=== PATIENT | female | born 1985 | race African-American/Black ===

== ENCOUNTER 2019-05-22 22:25 | Emergency (ER) | payer OTHER ==
[2019-05-22] MEDS ORDERED: ACETAMINOPHEN TAB 325 MG TAB PO STA (23:38)
[2019-05-23 00:06] LABS: Basophils % (A) 1 %; Eosinophils # (A) 0.3 k/uL (0-0.7); Eosinophils % (A) 4 %; HCT 37.7 % (34.0-46.0); HGB 11.8 gm/dL (11.4-16.0); Lymphocytes # (A) 3.5 k/uL (1.0-4.8); Lymphocytes % (A) 53 %; MCH 28.2 pg (25.0-35.0); MCHC 31.2 g/dL (31.0-37.0); MCV 90.3 fL (80.0-100.0); Monocytes # (A) 0.3 k/uL (0-1.0); Monocytes % (A) 5 %; Neutrophils # (A) 2.4 k/uL (1.3-7.7); Neutrophils % (A) 36 %; Platelet Count 312 k/uL (150-450); RBC 4.17 m/uL (3.80-5.40); RDW 13.6 % (11.5-15.5); WBC 6.7 k/uL (3.8-10.6)
[2019-05-23 00:13] LABS: INR 0.9 (<1.2)
[2019-05-23 00:17] LABS: ALT 16 U/L (9-52); AST 14 U/L (14-36); African American GFR (CKD) >90 (>60 ml/min/1.73 sqM); Albumin 4.6 g/dL (3.5-5.0); Alkaline Phosphatase 50 U/L (38-126); Anion Gap 8 mmol/L; Appearance,Urine Clear (Clear); Bilirubin,Urine Negative (Negative); Blood Urea Nitrogen 13 mg/dL (7-17); Blood,Urine Negative (Negative); Carbon Dioxide 27 mmol/L (22-30); Chloride 105 mmol/L (98-107); Color,Urine Light Yellow; Glucose 98 mg/dL (74-99); Glucose,Urine (UA) Negative (Negative); Ketones,Urine Negative (Negative); Leukocyte Esterase,Urine Negative (Negative); Lipase 255 U/L (23-300); Nitrite,Urine Negative (Negative); Potassium 4.1 mmol/L (3.5-5.1); Protein,Urine Negative (Negative); Sodium 140 mmol/L (137-145); Specific Gravity,Urine 1.004 (1.001-1.035); Total Bilirubin 0.4 mg/dL (0.2-1.3); Total Protein 7.7 g/dL (6.3-8.2); Urobilinogen,Urine <2.0 mg/dL (<2.0)
--- NOTE | 2019-05-23 00:21 | ED ---
Abdominal Pain HPI - General Chief Complaint: Abdominal Pain Stated Complaint: Abd pain Time Seen by Provider: 05/22/19 22:38 Source: patient Mode of arrival: ambulatory Limitations: no limitations - History of Present Illness Initial Comments: The patient is a 34-year-old female presents to emergency room with complaint of abdominal pain. She reports that her pain started this morning. Is located in the periumbilical region with radiation to her right lower quadrant. She describes it as a cramping sensation. She did not take any medications at home for her symptoms. She reports that she has been constipated. She did have a bowel movement this morning however she had to strain. States this is not typical for her. She denies any rectal bleeding, melanotic stools or hematochezia. She denies any changes in her urination to include dysuria, hematuria or difficulty voiding. She denies any abnormal vaginal bleeding or discharge. She does report a history of a ectopic . Denies the possibility of being . Last menstrual cycle was the first of this month. She has no concern for sexy transmitted infections. She denies any nausea or vomiting. No chest pain or shortness of breath. Denies any back or flank pain. There are no other alleviating, precipitating or modifying factors - Related Data Previous Rx's Medication Instructions Recorded Polyethylene Glycol 3350 [Miralax] 17 gm PO DAILY PRN #527 gm 05/23/19 Allergies Allergy/AdvReac Type Severity Reaction Status Date / Time Iodinated Contrast- Oral and AdvReac Rash/Hives Verified 05/22/19 23:32 IV Dye shellfish derived [Shellfish] AdvReac Rash/Hives Verified 05/22/19 23:32 Review of Systems ROS Statement: Those systems with pertinent positive or pertinent negative responses have been documented in the HPI. ROS Other: All systems not noted in ROS Statement are negative. Past Medical History Past Medical History: Asthma Past Surgical History: Cholecystectomy Additional Past Surgical History / Comment(s): ectopic surgery Past Psychological History: No Psychological Hx Reported Smoking Status: Current every day smoker Past Alcohol Use History: Occasional Past Drug Use History: None Reported General Exam Limitations: no limitations General appearance: alert, in no apparent distress Head exam: Present: atraumatic, normocephalic, normal inspection Eye exam: Present: normal appearance, PERRL, EOMI. Absent: scleral icterus, conjunctival injection, periorbital swelling ENT exam: Present: normal exam, mucous membranes moist Neck exam: Present: normal inspection. Absent: tenderness, meningismus, lymphadenopathy Respiratory exam: Present: normal lung sounds bilaterally. Absent: respiratory distress, wheezes, rales, rhonchi, stridor Cardiovascular Exam: Present: regular rate, normal rhythm, normal heart sounds. Absent: systolic murmur, diastolic murmur, rubs, gallop, clicks GI/Abdominal exam: Present: soft, normal bowel sounds. Absent: distended, tenderness, guarding, rebound, rigid Extremities exam: Present: normal inspection, full ROM, normal capillary refill. Absent: tenderness, pedal edema, joint swelling, calf tenderness Back exam: Present: normal inspection Neurological exam: Present: alert, oriented X3, CN II-XII intact Psychiatric exam: Present: normal affect, normal mood Skin exam: Present: warm, dry, intact, normal color. Absent: rash Course Vital Signs 05/22/19 05/23/19 05/23/19 22:27 00:01 01:40 Temperature 97.9 F 97.8 F Pulse Rate 90 74 75 Respiratory 16 18 16 Rate Blood Pressure 126/85 104/75 132/84 O2 Sat by Pulse 98 100 100 Oximetry Medical Decision Making - Medical Decision Making The patient is placed into room 16. She is hooked up to continuous pulse ox and cardiac monitoring. I discussed diagnosis, differential and treatment options. Laboratory studies were conducted and the patient did provide a urine sample. She was also sent for a CT of her abdomen and pelvis without contrast as the patient does have an ALLERGY to iodinated contrast. Upon return, the results are discussed with the patient. Laboratory studies are unremarkable and urina lysis demonstrates no signs of infection. CT of her abdomen and pelvis demonstrates a umbilical hernia however there are no signs of appendicitis. The patient had been provided with Tylenol throughout her stay. She remained comfortable. Serial abdominal exams were performed demonstrated no peritoneal signs. The patient was seen conversing on her cell phone. The patient was discharged. Upon entering the patient room to provide discharge instructions addictive noted the patient had eloped. The nursing staff was able to call him discuss deportment returning to the emergency department in order to remove the patient's ID. The patient states that she had left to go orange picker her family fro m a restaurant. She reported that she would return. We are currently arriving patient's return. - Lab Data Result diagrams: 05/22/19 23:50 05/22/19 23:50 Lab Results 05/22/19 05/22/19 05/22/19 Range/Units 23:50 23:50 23:50 WBC 6.7 (3.8-10.6) k/uL RBC 4.17 (3.80-5.40) m/uL Hgb 11.8 (11.4-16.0) gm/dL Hct 37.7 (34.0-46.0) % MCV 90.3 (80.0-100.0) fL MCH 28.2 (25.0-35.0) pg MCHC 31.2 (31.0-37.0) g/dL RDW 13.6 (11.5-15.5) % Plt Count 312 (150-450) k/uL Neutrophils % 36 % Lymphocytes % 53 % Monocytes % 5 % Eosinophils % 4 % Basophils % 1 % Neutrophils # 2.4 (1.3-7.7) k/uL Lymphocytes # 3.5 (1.0-4.8) k/uL Monocytes # 0.3 (0-1.0) k/uL Eosinophils # 0.3 (0-0.7) k/uL Basophils # 0.0 (0-0.2) k/uL PT (9.0-12.0) sec INR (<1.2) Sodium 140 (137-145) mmol/L Potassium 4.1 (3.5-5.1) mmol/L Chloride 105 (98-107) mmol/L Carbon Dioxide 27 (22-30) mmol/L Anion Gap 8 mmol/L BUN 13 (7-17) mg/dL Creatinine 0.74 (0.52-1.04) mg/dL Est GFR (CKD-EPI)AfAm >90 (>60 ml/min/1.73 sqM) Est GFR (CKD-EPI)NonAf >90 (>60 ml/min/1.73 sqM) Glucose 98 (74-99) mg/dL Plasma Lactic Acid Nilo (0.7-2.0) mmol/L Calcium 10.0 (8.4-10.2) mg/dL Total Bilirubin 0.4 (0.2-1.3) mg/dL AST 14 (14-36) U/L ALT 16 (9-52) U/L Alkaline Phosphatase 50 (38-126) U/L Total Protein 7.7 (6.3-8.2) g/dL Albumin 4.6 (3.5-5.0) g/dL Lipase 255 (23-300) U/L Urine Color Urine Appearance (Clear) Urine pH (5.0-8.0) Ur Specific [place] (1.001-1.035) Urine Protein (Negative) Urine Glucose (UA) (Negative) Urine Ketones (Negative) Urine Blood (Negative) Urine Nitrite (Negative) Urine Bilirubin (Negative) Urine Urobilinogen (<2.0) mg/dL Ur Leukocyte Esterase (Negative) Urine HCG, Qual Not Detected (Not Detectd) 05/22/19 05/22/19 05/22/19 Range/Units 23:50 23:50 23:50 WBC (3.8-10.6) k/uL RBC (3.80-5.40) m/uL Hgb (11.4-16.0) gm/dL Hct (34.0-46.0) % MCV (80.0-100.0) fL MCH (25.0-35.0) pg MCHC (31.0-37.0) g/dL RDW (11.5-15.5) % Plt Count (150-450) k/uL Neutrophils % % Lymphocytes % % Monocytes % % Eosinophils % % Basophils % % Neutrophils # (1.3-7.7) k/uL Lymphocytes # (1.0-4.8) k/uL Monocytes # (0-1.0) k/uL Eosinophils # (0-0.7) k/uL Basophils # (0-0.2) k/uL PT 10.0 (9.0-12.0) sec INR 0.9 (<1.2) Sodium (137-145) mmol/L Potassium (3.5-5.1) mmol/L Chloride (98-107) mmol/L Carbon Dioxide (22-30) mmol/L Anion Gap mmol/L BUN (7-17) mg/dL Creatinine (0.52-1.04) mg/dL Est GFR (CKD-EPI)AfAm (>60 ml/min/1.73 sqM) Est GFR (CKD-EPI)NonAf (>60 ml/min/1.73 sqM) Glucose (74-99) mg/dL Plasma Lactic Acid Nilo 0.8 (0.7-2.0) mmol/L Calcium (8.4-10.2) mg/dL Total Bilirubin (0.2-1.3) mg/dL AST (14-36) U/L ALT (9-52) U/L Alkaline Phosphatase (38-126) U/L Total Protein (6.3-8.2) g/dL Albumin (3.5-5.0) g/dL Lipase (23-300) U/L Urine Color Light Yellow Urine Appearance Clear (Clear) Urine pH 6.0 (5.0-8.0) Ur Specific [place] 1.004 (1.001-1.035) Urine Protein Negative (Negative) Urine Glucose (UA) Negative (Negative) Urine Ketones Negative (Negative) Urine Blood Negative (Negative) Urine Nitrite Negative (Negative) Urine Bilirubin Negative (Negative) Urine Urobilinogen <2.0 (<2.0) mg/dL Ur Leukocyte Esterase Negative (Negative) Urine HCG, Qual (Not Detectd) Disposition Clinical Impression: Abdominal pain, Constipation Disposition: HOME SELF-CARE Condition: Stable Instructions (If sedation given, give patient instructions): Abdominal Pain (ED) Additional Instructions: Please follow-up with your primary care doctor in 1-2 days. Return to emergency room for any new or worsening symptoms Prescriptions: Polyethylene Glycol 3350 [Miralax] 17 gm PO DAILY PRN #527 gm PRN Reason: Constipation Is patient prescribed a controlled substance at d/c from ED?: No Referrals: None,Stated [Primary Care Provider] - 1-2 days Time of Disposition: 01:15
--- NOTE | 2019-05-23 00:48 | CT ---
EXAM: CT Abdomen and Pelvis Without Intravenous Contrast CLINICAL HISTORY: abdominal pain TECHNIQUE: Axial computed tomography images of the abdomen and pelvis without intravenous contrast. CTDI is 18.8 mGy and DLP is 783.4 mGy-cm. This CT exam was performed using one or more of the following dose reduction techniques: automated exposure control, adjustment of the mA and/or kV according to patient size, and/or use of iterative reconstruction technique. COMPARISON: No relevant prior studies available. FINDINGS: Lung bases: Unremarkable. No mass. No consolidation. ABDOMEN: Liver: Unremarkable. Gallbladder and bile ducts: Surgically absent. No ductal dilation. Pancreas: Unremarkable. No ductal dilation. Spleen: Unremarkable. No splenomegaly. Adrenals: Unremarkable. No mass. Kidneys and ureters: Unremarkable. No obstructing stones. No hydronephrosis. Stomach and bowel small periumbilical hernia containing fat.. No inflammatory changes along the colon No obstruction. No mucosal thickening. PELVIS: Appendix: The appendix is unremarkable. Bladder: Unremarkable. No stones. Reproductive: Unremarkable as visualized. ABDOMEN and PELVIS: Intraperitoneal space: Unremarkable. No free air. No significant fluid collection. Bones/joints: No acute fracture. No dislocation. Soft tissues: Unremarkable. Vasculature: Unremarkable. No abdominal aortic aneurysm. Lymph nodes: Unremarkable. No enlarged lymph nodes. IMPRESSION: No acute abnormality demonstrated the abdomen or pelvis
[2019-05-23 01:43] VITALS: BP 132/84; PULSE 75; RESP 16; TEMP 97.8
== END 2019-05-23 01:40 | disposition home or self-care (01) ==
LOC: EC 22:25
DX: K59.00 Constipation, unspecified (principal); K42.9 Umbilical hernia without obstruction or gangrene; F17.200 Nicotine dependence, unspecified, uncomplicated; Z91.013 Allergy to seafood; Z91.041 Radiographic dye allergy status; Z90.49 Acquired absence of other specified parts of digestive tract
CPT/HCPCS: 36415; 74176; 80053; 81003; 81025; 83605; 83690; 85025; 85610; 99284

== ENCOUNTER 2024-10-11 13:57 | Emergency (ER) | payer OTHER ==
--- NOTE | 2024-10-11 14:56 | ED ---
General Adult HPI - General Chief complaint: Dizziness Stated complaint: dizzy/bilateral ear ache/preg test Time Seen by Provider: 10/11/24 14:11 Source: patient, RN notes reviewed Mode of arrival: ambulatory Limitations: no limitations - History of Present Illness Initial comments: 39-year-old presented to the emergency department for evaluation of multiple complaints. She admits to lightheadedness. Patient reports that she is unsure when this started. She notes that it is on and off. Denies any known triggers. Patient also requesting serum hCG test. She states that she has some lower abdominal cramping and her period is late. She is not having any abdominal pain at this time. Denies recent fever, chills. She denies nausea, vomiting, v aginal bleeding, vaginal discharge. She denies dysuria, frequency. - Related Data Home Medications Medication Instructions Recorded Confirmed Albuterol Sulfate [Albuterol 2 puff PO RT-Q4H PRN 10/11/24 10/11/24 Sulfate Hfa] Cetirizine HCl [Zyrtec] 10 mg PO DAILY 10/11/24 10/11/24 Cromolyn Sodium [NasalCrom] 1 spray NASAL QID PRN 10/11/24 10/11/24 Allergies Allergy/AdvReac Type Severity Reaction Status Date / Time Iodinated Contrast Media AdvReac Rash/Hives Verified 10/11/24 15:44 [Iodinated Contrast- Oral and IV Dye] shellfish derived [Shellfish] AdvReac Rash/Hives Verified 10/11/24 15:44 Review of Systems ROS Statement: Those systems with pertinent positive or pertinent negative responses have been documented in the HPI. ROS Other: All systems not noted in ROS Statement are negative. Past Medical History Past Medical History: Asthma History of Any Multi-Drug Resistant Organisms: None Reported Past Surgical History: Cholecystectomy Additional Past Surgical History / Comment(s): ectopic surgery Past Psychological History: No Psychological Hx Reported Smoking Status: Current every day smoker Past Alcohol Use History: Occasional Past Drug Use History: None Reported General Exam Limitations: no limitations General appearance: alert, in no apparent distress Head exam: Present: atraumatic, normocephalic, normal inspection Eye exam: Present: normal appearance, PERRL, EOMI. Absent: scleral icterus, conjunctival injection, periorbital swelling ENT exam: Present: normal oropharynx Respiratory exam: Present: normal lung sounds bilaterally. Absent: respiratory distress, wheezes, rales, rhonchi, stridor Cardiovascular Exam: Present: regular rate, normal rhythm, normal heart sounds. Absent: systolic murmur, diastolic murmur, rubs, gallop, clicks GI/Abdominal exam: Present: soft, normal bowel sounds. Absent: distended, tenderness, guarding, rebound, rigid Extremities exam: Present: normal inspection, full ROM, normal capillary refill. Absent: tenderness, pedal edema, joint swelling, calf tenderness Neurological exam: Present: alert, oriented X3 Psychiatric exam: Present: normal affect, normal mood Skin exam: Present: warm, dry, intact, normal color. Absent: rash Course Vital Signs 10/11/24 10/11/24 10/11/24 13:58 17:02 17:50 Temperature 97.9 F Pulse Rate 82 84 Respiratory 20 18 18 Rate Blood Pressure 94/60 113/81 Blood Pressure 125/80 [Left Arm Sitting] Blood Pressure 116/71 [Left Arm Standing] Blood Pressure 122/68 [Left Arm Supine] O2 Sat by Pulse 100 97 99 Oximetry 10/11/24 18:11 Temperature 98.4 F Pulse Rate 84 Respiratory 18 Rate Blood Pressure 124/76 Blood Pressure [Left Arm Sitting] Blood Pressure [Left Arm Standing] Blood Pressure [Left Arm Supine] O2 Sat by Pulse 98 Oximetry Medical Decision Making - Medical Decision Making Was pt. sent in by a medical professional or institution (, PA, SHAPING MACHINE TENDER, urgent care, hospital, or jail...) When possible be specific @ -No Did you speak to anyone other than the patient for history (EMS, parent, family, police, friend...)? What history was obtained from this source @ -No Did you review nursing and triage notes (agree or disagree)? Why? @ -I reviewed and agree with nursing and triage notes Were old charts reviewed (outside hosp., previous admission, EMS record, old EKG, old radiological studies, urgent care reports/EKG's, jail records)? Report findings @ -No old charts were reviewed Differential Diagnosis (chest pain, altered mental status, abdominal pain women, abdominal pain men, vaginal bleeding, weakness, fever, dyspnea, syncope, headache, dizziness, GI bleed, back pain, seizure, CVA, palpatations, mental health, musculoskeletal)? @ -Differential Dizziness: Benign paroxysmal positional Vertigo, Meniere's disease, otitis media, acoustic neuroma, vertebrobasilar insufficiency, cerebellar stroke, encephalitis, hypovolemic, arrhythmia, coronary artery syndrome, anemia, this is not meant to be an all-inclusive list EKG interpreted by me (3pts min.). @ -EKG at 1419 shows sinus rhythm rate 73, WA 144, QRS 101, QTQTc [id number] X-rays interpreted by me (1pt min.). @ -None done CT interpreted by me (1pt min.). @ -None done U/S interpreted by me (1pt. min.). @ -None done What testing was considered but not performed or refused? (CT, X-rays, U/S, labs)? Why? @ -None What meds were considered but not given or refused? Why? @ -None Did you discuss the management of the patient with other professionals (professionals i.e. , PA, SHAPING MACHINE TENDER, lab, RT, psych nurse, clinical social worker, cement based materials pump tender, teacher, bsa officer, human services case manager)? Give summary @ -No Was smoking cessation discussed for >3mins.? @ -No Was critical care preformed (if so, how long)? @ -No Were there social determinants of health that impacted care today? How? (Homelessness, low income, unemployed, alcoholism, drug addiction, transportation, low edu. Level, literacy, decrease access to med. care, intermediate, rehab)? @ -No Was there de-escalation of care discussed even if they declined (Discuss DNR or withdrawal of care, Hospice)? DNR status @ -No What co-morbidities impacted this encounter? (DM, HTN, Smoking, COPD, CAD, Cancer, CVA, ARF, Chemo, Hep., AIDS, mental health diagnosis, sleep apnea, morbid obesity)? @ -None Was patient admitted / discharged? Hospital course, mention meds given and route, prescriptions, significant lab abnormalities, going to OR and other pertinent info. @ -Discharge. Patient presented to the emergency department for evaluation of multiple complaints. Patient reporting lightheadedness, requesting serum hCG test, lower abdominal cramping. She is not having any abdominal pain at this time. She is nontender to palpation. She was provided a liter of normal saline in the ED which improved her lightheadedness. Laboratory studies obtained revealing no significant leukocytosis, hemoglobin stable. Negative serum hCG. UA shows no evidence of infectious process, negative for COVID, influenza, RSV. Patient was advised on findings, symptoms improved. Patient will be discharged home. Patient stable at time of discharge. Case discussed with Dr. Garcia Undiagnosed new problem with uncertain prognosis? @ -No Drug Therapy requiring intensive monitoring for toxicity (Heparin, Nitro, Insulin, Cardizem)? @ -No Were any procedures done? @ -No Diagnosis/symptom? @ -Lightheadedness Acute, or Chronic, or Acute on Chronic? @ -Acute Uncomplicated (without systemic symptoms) or Complicated (systemic symptoms)? @ -Uncomplicated Side effects of treatment? @ -No Exacerbation, Progression, or Severe Exacerbation? @ -No Poses a threat to life or bodily function? How? (Chest pain, [place], [place], pneumonia, PE, COPD, DKA, ARF, appy, cholecystitis, CVA, Diverticulitis, Homicidal, Suicidal, threat to staff... and all critical care pts) @ -No - Lab Data Result diagrams: 10/11/24 14:38 10/11/24 14:38 Lab Results 10/11/24 10/11/24 10/11/24 Range/Units 14:38 14:38 14:38 WBC 6.4 (3.8-10.6) k/uL RBC 4.69 (3.80-5.40) m/uL Hgb 14.4 (11.4-16.0) gm/dL Hct 43.8 (34.0-46.0) % MCV 93.5 (80.0-100.0) fL MCH 30.7 (25.0-35.0) pg MCHC 32.9 (31.0-37.0) g/dL RDW 13.1 (11.5-15.5) % Plt Count 176 (150-450) k/uL MPV 8.7 Neutrophils % 48 % Lymphocytes % 39 % Monocytes % 6 % Eosinophils % 5 % Basophils % 1 % Neutrophils # 3.1 (1.3-7.7) k/uL Lymphocytes # 2.5 (1.0-4.8) k/uL Monocytes # 0.4 (0-1.0) k/uL Eosinophils # 0.4 (0-0.7) k/uL Basophils # 0.0 (0-0.2) k/uL Sodium 138 (137-145) mmol/L Potassium 4.6 (3.5-5.1) mmol/L Chloride 109 H (98-107) mmol/L Carbon Dioxide 20 L (22-30) mmol/L Anion Gap 9 mmol/L BUN 7 (7-17) mg/dL Creatinine 0.65 (0.52-1.04) mg/dL Est GFR (CKD-EPI)AfAm >90 (>60 ml/min/1.73 sqM) Est GFR (CKD-EPI)NonAf >90 (>60 ml/min/1.73 sqM) Glucose 80 (74-99) mg/dL Calcium 9.4 (8.4-10.2) mg/dL Total Bilirubin 1.1 (0.2-1.3) mg/dL AST 33 (14-36) U/L ALT 38 H (4-34) U/L Alkaline Phosphatase 70 (38-126) U/L Total Protein 8.7 H (6.3-8.2) g/dL Albumin 4.8 (3.5-5.0) g/dL HCG, Quant <2.4 mIU/mL Urine Color Colorless Urine Appearance Clear (Clear) Urine pH 7.0 (5.0-8.0) Ur Specific [place] 1.008 (1.001-1.035) Urine Protein Negative (Negative) Urine Glucose (UA) Negative (Negative) Urine Ketones Negative (Negative) Urine Blood Negative (Negative) Urine Nitrite Negative (Negative) Urine Bilirubin Negative (Negative) Urine Urobilinogen <2.0 (<2.0) mg/dL Ur Leukocyte Esterase Negative (Negative) Influenza Type A (PCR) (Not Detectd) Influenza Type B (PCR) (Not Detectd) RSV (PCR) (Not Detectd) SARS-CoV-2 (PCR) (Not Detectd) 10/11/24 Range/Units 14:38 WBC (3.8-10.6) k/uL RBC (3.80-5.40) m/uL Hgb (11.4-16.0) gm/dL Hct (34.0-46.0) % MCV (80.0-100.0) fL MCH (25.0-35.0) pg MCHC (31.0-37.0) g/dL RDW (11.5-15.5) % Plt Count (150-450) k/uL MPV Neutrophils % % Lymphocytes % % Monocytes % % Eosinophils % % Basophils % % Neutrophils # (1.3-7.7) k/uL Lymphocytes # (1.0-4.8) k/uL Monocytes # (0-1.0) k/uL Eosinophils # (0-0.7) k/uL Basophils # (0-0.2) k/uL Sodium (137-145) mmol/L Potassium (3.5-5.1) mmol/L Chloride (98-107) mmol/L Carbon Dioxide (22-30) mmol/L Anion Gap mmol/L BUN (7-17) mg/dL Creatinine (0.52-1.04) mg/dL Est GFR (CKD-EPI)AfAm (>60 ml/min/1.73 sqM) Est GFR (CKD-EPI)NonAf (>60 ml/min/1.73 sqM) Glucose (74-99) mg/dL Calcium (8.4-10.2) mg/dL Total Bilirubin (0.2-1.3) mg/dL AST (14-36) U/L ALT (4-34) U/L Alkaline Phosphatase (38-126) U/L Total Protein (6.3-8.2) g/dL Albumin (3.5-5.0) g/dL HCG, Quant mIU/mL Urine Color Urine Appearance (Clear) Urine pH (5.0-8.0) Ur Specific [place] (1.001-1.035) Urine Protein (Negative) Urine Glucose (UA) (Negative) Urine Ketones (Negative) Urine Blood (Negative) Urine Nitrite (Negative) Urine Bilirubin (Negative) Urine Urobilinogen (<2.0) mg/dL Ur Leukocyte Esterase (Negative) Influenza Type A (PCR) Not Detected (Not Detectd) Influenza Type B (PCR) Not Detected (Not Detectd) RSV (PCR) Not Detected (Not Detectd) SARS-CoV-2 (PCR) Not Detected (Not Detectd) Disposition Clinical Impression: Lightheadedness Disposition: HOME SELF-CARE Condition: Stable Instructions (If sedation given, give patient instructions): Dizziness (ED) Additional Instructions: Please follow up with a local PCP. Return to the emergency department for new or worsening symptoms. Is patient prescribed a controlled substance at d/c from ED?: No Referrals: None,Stated [Primary Care Provider] - 1-2 days Forms: Area PCPs
[2024-10-11] MEDS: SODIUM CHLORIDE 0.9% 1,000 ML IV STA (15:05)
[2024-10-11 15:24] LABS: ALT 38 U/L (4-34); AST 33 U/L (14-36); African American GFR (CKD) >90 (>60 ml/min/1.73 sqM); Albumin 4.8 g/dL (3.5-5.0); Alkaline Phosphatase 70 U/L (38-126); Anion Gap 9 mmol/L; Blood Urea Nitrogen 7 mg/dL (7-17); Calcium 9.4 mg/dL (8.4-10.2); Carbon Dioxide 20 mmol/L (22-30); Chloride 109 mmol/L (98-107); Glucose 80 mg/dL (74-99); Non-African American GFR(CKD) >90 (>60 ml/min/1.73 sqM); Potassium 4.6 mmol/L (3.5-5.1); Sodium 138 mmol/L (137-145); Total Bilirubin 1.1 mg/dL (0.2-1.3); Total Protein 8.7 g/dL (6.3-8.2)
[2024-10-11 15:41] LABS: HCG,Quantitative Serum <2.4 mIU/mL
[2024-10-11 15:44] LABS: Basophils % (A) 1 %; Eosinophils # (A) 0.4 k/uL (0-0.7); Eosinophils % (A) 5 %; HCT 43.8 % (34.0-46.0); HGB 14.4 gm/dL (11.4-16.0); Lymphocytes # (A) 2.5 k/uL (1.0-4.8); Lymphocytes % (A) 39 %; MCH 30.7 pg (25.0-35.0); MCHC 32.9 g/dL (31.0-37.0); MCV 93.5 fL (80.0-100.0); Mean Platelet Volume 8.7; Monocytes # (A) 0.4 k/uL (0-1.0); Monocytes % (A) 6 %; Neutrophils # (A) 3.1 k/uL (1.3-7.7); Neutrophils % (A) 48 %; Platelet Count 176 k/uL (150-450); RBC 4.69 m/uL (3.80-5.40); RDW 13.1 % (11.5-15.5); WBC 6.4 k/uL (3.8-10.6)
[2024-10-11 16:49] LABS: Appearance,Urine Clear (Clear); Bilirubin,Urine Negative (Negative); Blood,Urine Negative (Negative); Color,Urine Colorless; Glucose,Urine (UA) Negative (Negative); Ketones,Urine Negative (Negative); Leukocyte Esterase,Urine Negative (Negative); Nitrite,Urine Negative (Negative); Protein,Urine Negative (Negative); Specific Gravity,Urine 1.008 (1.001-1.035); Urobilinogen,Urine <2.0 mg/dL (<2.0)
[2024-10-11 17:34] VITALS: PULSE 84; RESP 18
[2024-10-11 18:13] VITALS: BP 124/76; TEMP 98.4
== END 2024-10-11 18:13 | disposition home or self-care (01) ==
LOC: EC 13:57
DX: R42 Dizziness and giddiness (principal); F17.200 Nicotine dependence, unspecified, uncomplicated; Z91.041 Radiographic dye allergy status; Z91.013 Allergy to seafood; Z11.52 Encounter for screening for COVID-19
CPT/HCPCS: 36415; 80053; 81003; 84702; 85025; 87636; 93005; 96360; 99284

== ENCOUNTER 2024-11-14 03:26 | Emergency (ER) | payer OTHER ==
[2024-11-14 03:42] VITALS: RESP 16; TEMP 98.5
--- NOTE | 2024-11-14 03:50 | ED ---
General Adult HPI - General Chief complaint: Vaginal Bleeding Stated complaint: Possible miscarriage Time Seen by Provider: 11/14/24 03:33 Source: patient, EMS Mode of arrival: EMS - History of Present Illness Initial comments: Dictation was produced using GuidePal dictation software. please excuse any grammatical, word or spelling errors. Chief Complaint: 39-year-old female vaginal bleeding pelvic pain History of Present Illness: Patient is a 39-year-old female presents emergency department for vaginal bleeding and pelvic pain. Patient not sure if she is . States that she had a positive test at home. Last few days she has had some vaginal bleeding with passage of blood clots. Does complain of some cramping. Patient complains of some also some nausea. Denies any diarrhea.. The ROS documented in this emergency department record has been reviewed and confirmed by me. Those systems with pertinent positive or negative responses have been documented in the HPI. All other systems are other negative and/or noncontributory. - Related Data Home Medications Medication Instructions Recorded Confirmed Albuterol Sulfate [Albuterol 2 puff PO RT-Q4H PRN 10/11/24 10/11/24 Sulfate Hfa] Cetirizine HCl [Zyrtec] 10 mg PO DAILY 10/11/24 10/11/24 Cromolyn Sodium [NasalCrom] 1 spray NASAL QID PRN 10/11/24 10/11/24 Allergies Allergy/AdvReac Type Severity Reaction Status Date / Time peanut Allergy Anaphylaxis Verified 11/14/24 03:42 Iodinated Contrast Media AdvReac Rash/Hives Verified 11/14/24 03:42 [Iodinated Contrast- Oral and IV Dye] shellfish derived [Shellfish] AdvReac Rash/Hives Verified 11/14/24 03:42 Review of Systems ROS Statement: Those systems with pertinent positive or pertinent negative responses have been documented in the HPI. ROS Other: All systems not noted in ROS Statement are negative. Past Medical History Past Medical History: Asthma History of Any Multi-Drug Resistant Organisms: None Reported Past Surgical History: Cholecystectomy Additional Past Surgical History / Comment(s): ectopic surgery Past Psychological History: No Psychological Hx Reported Smoking Status: Current every day smoker Past Alcohol Use History: Occasional Past Drug Use History: None Reported General Exam - General Exam Comments Initial Comments: PHYSICAL EXAM: General Impression: Alert and oriented x3, not in acute distress HEENT: Normocephalic atraumatic, extra-ocular movements intact, pupils equal and reactive to light bilaterally, mucous membranes moist. Cardiovascular: Heart regular rate and rhythm Chest: Able to complete full sentences, no retractions, no tachypnea Abdomen: abdomen soft, mild tenderness to the lower abdomen, non-distended, no organomegaly Musculoskeletal: Pulses present and equal in all extremities, no peripheral edema Motor: no focal deficits noted Neurological: CN II-XII grossly intact, no focal motor or sensory deficits noted Skin: Intact with no visualized rashes Psych: Normal affect and mood Course Vital Signs 11/14/24 03:38 Temperature 98.5 F Pulse Rate 98 Respiratory 16 Rate Blood Pressure 145/92 O2 Sat by Pulse 99 Oximetry Medical Decision Making - Medical Decision Making Was pt. sent in by a medical professional or institution (, PA, [employer]CRA[employer]SEMBLER, urgent care, hospital, or retirement...) When possible be specific @ -No Did you speak to anyone other than the patient for history (EMS, parent, family, police, friend...)? What history was obtained from this source @ -No Did you review nursing and triage notes (agree or disagree)? Why? @ -I reviewed and agree with nursing and triage notes Were old charts reviewed (outside hosp., previous admission, EMS record, old EKG, old radiological studies, urgent care reports/EKG's, retirement records)? Report findings @ -No old charts were reviewed Differential Diagnosis (chest pain, altered mental status, abdominal pain women, abdominal pain men, vaginal bleeding, musculoskeletal, weakness, fever, dyspnea, syncope, headache, dizziness, GI bleed, back pain, seizure, CVA, palpatations, mental health)? @ -Differential Abdominal Pain Women: Appendicitis, Cholecystitis, diverticulosis, ischemic bowel, pancreatitis, hepatitis, UTI, gastroenteritis, AAA, incarcerated hernia, bowel obstruction, constipation, inflammatory bowel, hepatitis, peptic ulcer disease, splenic infarction, perforated viscus, vulvitis, ovarian torsion, PID, kidney stone, placenta abruption, this is not meant to be an all-inclusive list EKG interpreted by me (3pts min.). @ -None done X-rays interpreted by me (1pt min.). @ -None done CT interpreted by me (1pt min.). @ -None done U/S interpreted by me (1pt. min.). @ -None done What testing was considered but not performed or refused? (CT, X-rays, U/S, labs)? Why? @ -None What meds were considered but not given or refused? Why? @ -None Was smoking cessation discussed for >3mins.? @ -No Were there social determinants of health that impacted care today? How? (Homelessness, low income, unemployed, alcoholism, drug addiction, transportation, low edu. Level, literacy, decrease access to med. care, prison, re hab)? @ -No Was there de-escalation of care discussed even if they declined (Discuss DNR or withdrawal of care, Hospice)? DNR status @ -No What co-morbidities impacted this encounter? (DM, HTN, Smoking, COPD, CAD, Cancer, CVA, ARF, Chemo, Hep., AIDS, mental health diagnosis, sleep apnea, morbid obesity)? @ -None Was patient admitted / discharged? Hospital course, mention meds given and route, prescriptions, significant lab abnormalities, going to OR and other pertinent info. @ -39-year-old female with no significant past medical history presents emergency department with abdominal pain. Vital signs stable. Patient's abdomen is nonsurgical. She does have some palpatory tenderness. Labs otherwise unremarkable. Urine hCG negative. Patient observed emergency department for approximately 2 hours and 36 minutes. Reevaluated bedside at 6:04 AM found to be stable medical condition. Patient well-appearing stable for discharge. Advise close follow-up with primary care doctor. Patient's vaginal bleeding is likely secondary to menses. Did you discuss the management of the patient with other professionals (professionals i.e. , PA, [employer]S ASSEMBLER, lab, RT, psych nurse, social media coordinator, stock fitter, teacher, quality officer, disease case manager rn)? Give summary @ -No Was critical care preformed (if so, how long)? @ -No Undiagnosed new problem with uncertain prognosis? @ -No Drug Therapy requiring intensive monitoring for toxicity (Heparin, Nitro, Insulin, Cardizem)? @ -No Were any procedures done? @ -No Diagnosis/symptom? Acute, or Chronic, or Acute on Chronic? Uncomplicated (without systemic symptoms) or Complicated (systemic symptoms)? @ -Abdominal pain Side effects of treatment? @ -No Exacerbation, Progression, or Severe Exacerbation? @ -No Poses a threat to life or bodily function? How? (Chest pain, [place], [place], pneumonia, PE, COPD, DKA, ARF, appy, cholecystitis, CVA, Diverticulitis, Homicidal, Suicidal, threat to staff... and all critical care pts) @ -No - Lab Data Result diagrams: 11/14/24 04:05 11/14/24 04:05 Lab Results 11/14/24 11/14/24 11/14/24 Range/Units 04:05 04:05 04:54 WBC 8.4 (3.8-10.6) k/uL RBC 4.00 (3.80-5.40) m/uL Hgb 12.4 (11.4-16.0) gm/dL Hct 37.2 (34.0-46.0) % MCV 93.0 (80.0-100.0) fL MCH 30.9 (25.0-35.0) pg MCHC 33.2 (31.0-37.0) g/dL RDW 12.5 (11.5-15.5) % Plt Count 280 (150-450) k/uL MPV 6.9 Neutrophils % 53 % Lymphocytes % 36 % Monocytes % 5 % Eosinophils % 3 % Basophils % 1 % Neutrophils # 4.5 (1.3-7.7) k/uL Lymphocytes # 3.0 (1.0-4.8) k/uL Monocytes # 0.5 (0-1.0) k/uL Eosinophils # 0.3 (0-0.7) k/uL Basophils # 0.1 (0-0.2) k/uL Sodium 139 (137-145) mmol/L Potassium 3.9 (3.5-5.1) mmol/L Chloride 105 (98-107) mmol/L Carbon Dioxide 26 (22-30) mmol/L Anion Gap 8 mmol/L BUN 11 (7-17) mg/dL Creatinine 0.72 (0.52-1.04) mg/dL Est GFR (CKD-EPI)AfAm >90 (>60 ml/min/1.73 sqM) Est GFR (CKD-EPI)NonAf >90 (>60 ml/min/1.73 sqM) Glucose 103 H (74-99) mg/dL Calcium 9.1 (8.4-10.2) mg/dL Total Bilirubin 0.6 (0.2-1.3) mg/dL AST 21 (14-36) U/L ALT 23 (4-34) U/L Alkaline Phosphatase 55 (38-126) U/L Total Protein 7.4 (6.3-8.2) g/dL Albumin 4.4 (3.5-5.0) g/dL Lipase 260 (23-300) U/L Urine HCG, Qual Not Detected (Not Detectd) Disposition Clinical Impression: Dysmenorrhea Disposition: HOME SELF-CARE Condition: Good Instructions (If sedation given, give patient instructions): Dysmenorrhea (ED) Is patient prescribed a controlled substance at d/c from ED?: No Referrals: None,Stated [Primary Care Provider] - 1-2 days Time of Disposition: 06:04
[2024-11-14] MEDS: MORPHINE SULFATE 4 MG/ML SYRINGE IV STA (04:08)
[2024-11-14 04:22] LABS: Basophils # (A) 0.1 k/uL (0-0.2); Basophils % (A) 1 %; Eosinophils # (A) 0.3 k/uL (0-0.7); Eosinophils % (A) 3 %; HCT 37.2 % (34.0-46.0); HGB 12.4 gm/dL (11.4-16.0); Lymphocytes % (A) 36 %; MCH 30.9 pg (25.0-35.0); MCHC 33.2 g/dL (31.0-37.0); Mean Platelet Volume 6.9; Monocytes # (A) 0.5 k/uL (0-1.0); Monocytes % (A) 5 %; Neutrophils # (A) 4.5 k/uL (1.3-7.7); Neutrophils % (A) 53 %; Platelet Count 280 k/uL (150-450); RDW 12.5 % (11.5-15.5); WBC 8.4 k/uL (3.8-10.6)
[2024-11-14 04:34] LABS: ALT 23 U/L (4-34); AST 21 U/L (14-36); African American GFR (CKD) >90 (>60 ml/min/1.73 sqM); Albumin 4.4 g/dL (3.5-5.0); Alkaline Phosphatase 55 U/L (38-126); Anion Gap 8 mmol/L; Blood Urea Nitrogen 11 mg/dL (7-17); Calcium 9.1 mg/dL (8.4-10.2); Carbon Dioxide 26 mmol/L (22-30); Chloride 105 mmol/L (98-107); Glucose 103 mg/dL (74-99); Lipase 260 U/L (23-300); Non-African American GFR(CKD) >90 (>60 ml/min/1.73 sqM); Potassium 3.9 mmol/L (3.5-5.1); Sodium 139 mmol/L (137-145); Total Bilirubin 0.6 mg/dL (0.2-1.3); Total Protein 7.4 g/dL (6.3-8.2)
[2024-11-14] MEDS: ACET/COD 300 MG/30 MG STARTER PACK 6 TAB BTL PO STA (06:19)
[2024-11-14] MEDS: KETOROLAC 15 MG/ML 1 ML VIAL IVP STA (06:20)
[2024-11-14 06:25] VITALS: BP 114/77; PULSE 89
== END 2024-11-14 06:13 | disposition home or self-care (01) ==
LOC: EC 03:26
DX: N94.6 Dysmenorrhea, unspecified (principal); F17.200 Nicotine dependence, unspecified, uncomplicated; Z91.041 Radiographic dye allergy status; Z91.010 Allergy to peanuts; Z91.013 Allergy to seafood
CPT/HCPCS: 36415; 80053; 83690; 85025; 81025; 99284; 96374; 96375; J2270; J1885

== ENCOUNTER 2025-05-14 13:46 | Outpatient (CLI) | payer OTHER | END 2025-05-14 14:30 | LOC: FBPOP 13:46 | PROVIDERS: ATTEND Obstetrics & Gynecology Obstetrics | DX: F22 Delusional disorders (principal); F17.200 Nicotine dependence, unspecified, uncomplicated; Z91.041 Radiographic dye allergy status; Z91.013 Allergy to seafood; Z91.040 Latex allergy status | CPT/HCPCS: 99285 ==

== ENCOUNTER 2025-05-14 14:37 | Inpatient (IN) | payer OTHER ==
--- NOTE | 2025-05-14 16:45 | ED ---
General Adult HPI - General Chief complaint: Psychiatric Symptoms Stated complaint: Abd pain,Mental health eval Time Seen by Provider: 05/14/25 14:56 Source: patient, RN notes reviewed Mode of arrival: EMS Limitations: no limitations - History of Present Illness Initial comments: This is a 40-year-old female presenting via EMS for possible psychological or abdominal issue. Patient having vague complaints when being entered into triage. Currently states she is not having abdominal pain and states to me that has no thoughts of harm to self or others or plan. Although patient did state to nurse that she has thoughts of self-harm. Patient is very hesitant in discussing true issue that brings her to the ER today. Patient states she has "no place to stay". Patient is asking if we can "perform a name change". Patient is possibly affirming that she is avoiding a certain person or situation and has no place to stay or seek snf. Patient otherwise a very poor historian and is unwilling to divulge much else in the way of information. Onset/Timin -: days(s) - Related Data Home Medications Medication Instructions Recorded Confirmed Albuterol Sulfate [Albuterol 2 puff PO RT-Q4H PRN 10/11/24 05/14/25 Sulfate Hfa] Allergies Allergy/AdvReac Type Severity Reaction Status Date / Time Iodinated Contrast Media AdvReac Rash/Hives Verified 05/14/25 14:17 [Iodinated Contrast- Oral and IV Dye] latex AdvReac Unknown Verified 05/14/25 14:17 shellfish derived [Shellfish] AdvReac Rash/Hives Verified 05/14/25 14:17 Review of Systems ROS Statement: Those systems with pertinent positive or pertinent negative responses have been documented in the HPI. ROS Other: All systems not noted in ROS Statement are negative. Past Medical History Past Medical History: Asthma History of Any Multi-Drug Resistant Organisms: None Reported Past Surgical History: Cholecystectomy Additional Past Surgical History / Comment(s): ectopic surgery Past Psychological History: No Psychological Hx Reported Smoking Status: Current every day smoker Past Alcohol Use History: Occasional Past Drug Use History: None Reported General Exam Limitations: no limitations General appearance: alert, in no apparent distress Head exam: Present: atraumatic, normocephalic, normal inspection Eye exam: Present: normal appearance, PERRL, EOMI. Absent: scleral icterus, conjunctival injection, periorbital swelling ENT exam: Present: normal exam, mucous membranes moist Neck exam: Present: normal inspection. Absent: tenderness, meningismus, lymphadenopathy Respiratory exam: Present: normal lung sounds bilaterally. Absent: respiratory distress, wheezes, rales, rhonchi, stridor Cardiovascular Exam: Present: regular rate, normal rhythm, normal heart sounds. Absent: systolic murmur, diastolic murmur, rubs, gallop, clicks GI/Abdominal exam: Present: soft, normal bowel sounds. Absent: distended, tenderness, guarding, rebound, rigid Extremities exam: Present: normal inspection, full ROM, normal capillary refill. Absent: tenderness, pedal edema, joint swelling, calf tenderness Back exam: Present: normal inspection Neurological exam: Present: alert, oriented X3, CN II-XII intact Psychiatric exam: Present: depressed, flat affect Skin exam: Present: warm, dry, intact, normal color. Absent: rash Course Vital Signs 05/14/25 15:04 Temperature 98.2 F Pulse Rate 86 Respiratory 16 Rate Blood Pressure 148/79 O2 Sat by Pulse 98 Oximetry Medical Decision Making - Medical Decision Making Was pt. sent in by a medical professional or institution (NINO Montiel, [employer], urgent care, hospital, or long-term...) When possible be specific @ -[No] Did you speak to anyone other than the patient for history (EMS, parent, family, police, friend...)? What history was obtained from this source @ -[No] Did you review nursing and triage notes (agree or disagree)? Why? @ -[I reviewed and agree with nursing and triage notes] Were old charts reviewed (outside hosp., previous admission, EMS record, old EKG, old radiological studies, urgent care reports/EKG's, long-term records)? Report findings @ -[No old charts were reviewed] Differential Diagnosis (chest pain, altered mental status, abdominal pain women, abdominal pain men, vaginal bleeding, weakness, fever, dyspnea, syncope, headache, dizziness, GI bleed, back pain, seizure, CVA, palpatations, mental health, musculoskeletal)? @ -Differential Mental Health Depression, anxiety, bipolar, psychosis, schizophrenia, borderline personality, situational depression, adjustment disorder, behavioral disorder, brain tumor, malingering, substance abuse, encephalopathy, medication reaction, dementia, hypothyroidism, degenerative neurologic disorder, lupus.... This is not meant to be all-inclusive list EKG interpreted by me (3pts min.). @ -Not done X-rays interpreted by me (1pt min.). @ -[None done] CT interpreted by me (1pt min.). @ -[None done] U/S interpreted by me (1pt. min.). @ -[None done] What testing was considered but not performed or refused? (CT, X-rays, U/S, labs)? Why? @ -[None] What meds were considered but not given or refused? Why? @ -[None] Did you discuss the management of the patient with other professionals (professionals i.e. , PA, [employer]ACER, lab, RT, psych nurse, social insurance specialist, silk screen etcher, teacher, financial officer, case assembler)? Give summary @ -[No] Was smoking cessation discussed for >3mins.? @ -[No] Was critical care preformed (if so, how long)? @ -[No] Were there social determinants of health that impacted care today? How? (Homelessness, low income, unemployed, alcoholism, drug addiction, transportation, low edu. Level, literacy, decrease access to med. care, halfway, rehab)? @ -[No] Was there de-escalation of care discussed even if they declined (Discuss DNR or withdrawal of care, Hospice)? DNR status @ -[No] What co-morbidities impacted this encounter? (DM, HTN, Smoking, COPD, CAD, Cancer, CVA, ARF, Chemo, Hep., AIDS, mental health diagnosis, sleep apnea, morbid obesity)? @ -[None] Was patient admitted / discharged? Hospital course, mention meds given and route, prescriptions, significant lab abnormalities, going to OR and other pertinent info. @ -[hospital course] Undiagnosed new problem with uncertain prognosis? @ -[No] Drug Therapy requiring intensive monitoring for toxicity (Heparin, Nitro, Insulin, Cardizem)? @ -[No] Were any procedures done? @ -[No] Diagnosis/symptom? @ -Paranoia Acute, or Chronic, or Acute on Chronic? @ -Acute Uncomplicated (without systemic symptoms) or Complicated (systemic symptoms)? @ -Uncomplicated Side effects of treatment? @ -[No] Exacerbation, Progression, or Severe Exacerbation? @ -[No] Poses a threat to life or bodily function? How? (Chest pain, [place], [place], pneumonia, PE, COPD, DKA, ARF, appy, cholecystitis, CVA, Diverticulitis, Homicidal, Suicidal, threat to staff... and all critical care pts) @ -[No] - Lab Data Lab Results 05/14/25 05/14/25 Range/Units 16:43 16:43 Urine HCG, Qual Not Detected (Not Detectd) Urine Opiates Screen Not Detected (NotDetected) Ur Oxycodone Screen Not Detected (NotDetected) Urine Methadone Screen Not Detected (NotDetected) Ur Barbiturates Screen Not Detected (NotDetected) U Tricyclic Antidepress Not Detected (NotDetected) Ur Phencyclidine Scrn Not Detected (NotDetected) Ur Amphetamines Screen Not Detected (NotDetected) U Methamphetamines Scrn Not Detected (NotDetected) U Benzodiazepines Scrn Not Detected (NotDetected) Urine Cocaine Screen Not Detected (NotDetected) U Marijuana (THC) Screen Detected H (NotDetected) Disposition Clinical Impression: Paranoia Disposition: ADMITTED IP TO THIS HOSP Condition: Fair Referrals: None,Stated [Primary Care Provider] - 1-2 days [facility] [NON-STAFF] - 1-2 days (Clinic for [facility] residents with no insurance or who are under insured. ) Forms: [facility], Personal Digital Marketing Coordinator Time of Disposition: 18:30 Decision Date: 05/14/25 Decision Time: 18:30
[2025-05-14 17:54] LABS: Barbiturate Screen,Urine Not Detected (NotDetected); Benzodiazepines Screen,Urine Not Detected (NotDetected); Opiate Screen,Urine Not Detected (NotDetected); Oxycodone Screen, Urine Not Detected (NotDetected); Phencyclidine Screen,Urine Not Detected (NotDetected); Tricyclic Antidepressant,Urine Not Detected (NotDetected); Urn Cannabinoid Scrn Detected (NotDetected)
[2025-05-14] MEDS ORDERED: ALBUTEROL HFA INHALER INHALATION PRN (21:57)
[2025-05-14] MEDS ORDERED: IBUPROFEN 600 MG TAB PO PRN (21:58)
[2025-05-14] MEDS ORDERED: HALOPERIDOL LACTATE 5 MG/ML 1 ML VIAL IM PRN (21:58)
[2025-05-14] MEDS ORDERED: MAG HYDROX/AL HYDROX/SIMETH 355 ML BOTTLE PO PRN (21:58)
[2025-05-14] MEDS ORDERED: LORazepam 1 MG/0.5 ML VIAL IM PRN (21:58)
[2025-05-14] MEDS ORDERED: LORazepam 1 MG TAB PO PRN (21:58)
[2025-05-14] MEDS ORDERED: MAGNESIUM HYDROXIDE 2,400 MG/30 ML CUP PO PRN (21:58)
[2025-05-15] MEDS: NICOTINE 14MG/24HR PATCH TRANSDERM SCH (08:53)
--- NOTE | 2025-05-15 10:19 | P.HP ---
Psychiatric H&P - . H&P Date: 05/15/25 History & Physical: Allergies Allergy/AdvReac Type Severity Reaction Status Date / Time Iodinated Contrast Media AdvReac Rash/Hives Verified 05/14/25 19:16 [Iodinated Contrast- Oral and IV Dye] latex AdvReac Unknown Verified 05/14/25 19:16 shellfish derived [Shellfish] AdvReac Rash/Hives Verified 05/14/25 19:16 Vital Signs Temp 97.4 F L 05/15/25 09:00 Pulse 91 05/15/25 09:00 Resp 16 05/15/25 09:00 BP 114/73 05/15/25 09:00 Pulse Ox 98 05/15/25 09:00 FiO2 Intake & Output 05/14/25 05/15/25 05/15/25 18:59 06:59 18:59 Weight 117.934 kg 118.076 kg Laboratory Last Values Urine HCG, Qual Not Detected (Not Detectd) 05/14/25 16:43 Urine Opiates Screen Not Detected (NotDetected) 05/14/25 16:43 Ur Oxycodone Screen Not Detected (NotDetected) 05/14/25 16:43 Urine Methadone Screen Not Detected (NotDetected) 05/14/25 16:43 Ur Barbiturates Screen Not Detected (NotDetected) 05/14/25 16:43 U Tricyclic Antidepress Not Detected (NotDetected) 05/14/25 16:43 Ur Phencyclidine Scrn Not Detected (NotDetected) 05/14/25 16:43 Ur Amphetamines Screen Not Detected (NotDetected) 05/14/25 16:43 U Methamphetamines Scrn Not Detected (NotDetected) 05/14/25 16:43 U Benzodiazepines Scrn Not Detected (NotDetected) 05/14/25 16:43 Urine Cocaine Screen Not Detected (NotDetected) 05/14/25 16:43 U Marijuana (THC) Screen Detected (NotDetected) H 05/14/25 16:43 SARS-CoV-2 (PCR) Not Detected (Not Detectd) 05/14/25 20:30 05/15/25 10:06 IDENTIFYING DATA: 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 Psychiatric intake interviewed the patient who presented bizarre and had made some suicidal statements which included running into traffic. The patient was a limited historian due to paranoia. Prior to confronting her with that statement she noted that she was not suicidal and afterwards notes that she does not know why she said that. She notes that she is frustrated that she has been admitted to the psychiatric unit. The patient's UDS was positive for cannabis. The patient notes that she is going through a bad bout of depression and her depression waxes and wanes. She notes her anxiety levels bad. She notes that she had not been sleeping recently. She notes that her energy, appetite and concentration are normal. She denies any feelings of helplessness, hopelessness or worthlessness. She denies any crying but notes guilt and shame. When asking her about auditory hallucinations she denied this. She also denied any visual hallucinations or ideas of reference. She denied any thought projection or mind reading. She did state that she is paranoid and would hesitate on her answers because she had to think of them prior to seeing them due to fear that they would cause her to stay longer. When asking if she was she initially said no but now after showing her in the chart that she had stated this before and her spouse's name she notes that she is. When asking her for her father and mother's phone number she was unable to remember it but the street address. She notes that she is nervous because she is taking care of her father and mother. She continued to deny any suicidal or homicidal ideations. She denies any access to guns. Collateral: Patient gave me permission to speak to her however when tried the number it appears that the number is disconnected Psychiatric review of systems: Bipolar-denied symptoms OCD-denied symptoms PTSD-denied symptoms Anxiety-Notes chronic worrying, muscle tension, problems initiating sleep and fatigue PAST PSYCHIATRIC HISTORY: The patient denies any psychiatric diagnosis. Denies ever being on psychiatric medications. Denies ever being in a psychiatric hospital. The patient notes that she follows up with counseling with a rastafari service. The patient denies any suicide attempts. The patient notes trauma but was reluctant to describe it and notes that "I put that behind me". She denied any self harming behaviors or legal problems. PMH: Stomach pain ALLERGIES: as per EMR CHEMICAL DEPENDENCY HISTORY: Caffeine-positive Tobacco-positive Cannabis-The patient notes that she smoked cannabis a week ago initially she denied using any for months. FAMILY PSYCHIATRIC/SUBSTANCE USE HISTORY: Denies SOCIAL HISTORY: The patient was born and raised in [place] and notes that her childhood was "interesting". The patient notes that she attended high school and had average grades. She notes that she currently lives with her father and does hair for living. She denies any marriages however when reapproached she notes that she is . She denies any children. She notes that she is rastafari. She denies any service. MENTAL STATUS EXAM: General Appearance: The patient presented her stated age, normal gait, obese, disheveled and malodorous Behavior: Guarded and evasive. Patient was restless Speech: Patient's speech is fluent and nonpressured. Mood/Affect: Patient reports their mood is guarded, affect is congruent and constricted. Suicidality/Homicidality: Patient denies having any homicidal ideation intent or plan. Denies any suicidal ideations intent or plan Perceptions: Patient denies any visual hallucinations and denies any auditory hallucinations Though content/process: Patient presented extremely paranoid and had delayed res ponses to questions Memory and concentration: AOX3, grossly intact for the purposes of this session. Can spell "WORLD" backwards Judgment and insight: Poor/Poor STRENGTHS/WEAKNESSES: strength is that patient is resilient. Weakness is that patient has poor judgment and is impulsive INTELLECT: Below average Diagnosis: Psychosis unspecified Depression unspecified PLAN: -Patient is admitted under involuntary status to [facility] for stabilization of psychiatric symptoms and safety. Patient has not signed adult voluntary form and medication consent and is placed in patient's chart. A second certification was completed and along with petition will be filed for court. -Medications : Zyprexa Zydis 5 mg take 1 tablet by mouth twice daily for psychosis -Ativan and Haldol PRN for agitation/aggression -Patient was counselled on substance abuse and desired to cut back on use -Will offer patient subtance use rehab -Patient was informed of the risks, benefits and side effects of the medication and patient verbally consented to taking the medications. Patient signed med consent form and was placed in chart. -Internal Medicine consult to perform medical evaluation and physical. -NRT -nicotine patch -SW on board for discharge planning. Encourage patient to participate in groups to work on coping skills. Will await deferral and court date.
[2025-05-15 17:41] LABS: Basophils # (A) 0.03 10*3/uL (0.00-0.10); Basophils % (A) 0.4 %; Eosinophils # (A) 0.17 10*3/uL (0.04-0.35); Eosinophils % (A) 2.4 %; HCT 37.2 % (37.2-46.3); HGB 12.8 g/dL (12.0-15.0); Lymphocytes # (A) 2.99 10*3/uL (0.90-5.00); Lymphocytes % (A) 42.7 %; MCH 31.0 pg (27.0-32.0); MCHC 34.4 g/dL (32.0-37.0); MCV 90.1 fL (80.0-97.0); Monocytes # (A) 0.72 10*3/uL (0.20-1.00); Monocytes % (A) 10.3 %; Neutrophils # (A) 3.09 10*3/uL (1.80-7.70); Neutrophils % (A) 44.1 %; Platelet Count 270 10*3/uL (140-440); RBC 4.13 10*6/uL (4.10-5.20); RDW 12.2 % (11.5-14.5); WBC 7.01 10*3/uL (4.50-10.00)
[2025-05-15 18:01] LABS: ALT 23 U/L (4-34); AST 21 U/L (14-36); African American GFR (CKD) >90 (>60 ml/min/1.73 sqM); Albumin 4.7 g/dL (3.5-5.0); Alkaline Phosphatase 69 U/L (38-126); Anion Gap 12 mmol/L; Blood Urea Nitrogen 5 mg/dL (7-17); Calcium 9.5 mg/dL (8.4-10.2); Carbon Dioxide 23 mmol/L (22-30); Chloride 105 mmol/L (98-107); Glucose 99 mg/dL (74-99); Non-African American GFR(CKD) >90 (>60 ml/min/1.73 sqM); Potassium 3.9 mmol/L (3.5-5.1); Sodium 140 mmol/L (137-145); Total Protein 8.0 g/dL (6.3-8.2)
[2025-05-15] MEDS: OLANZapine ODT 5 MG TAB PO SCH (20:58)
[2025-05-16 02:50] LABS: Cholesterol 161.00 mg/dL (0.00-200.00); HDL Cholesterol 45.50 mg/dL (40.00-60.00); LDL Cholesterol,Calculated 95.9 mg/dL (0.0-131.0); Triglycerides 98.10 mg/dL (0.00-149.00); VLDL Calculation 19.62 mg/dL (5.00-40.00)
--- NOTE | 2025-05-16 11:53 | P.PN ---
Progress Note - Text Progress Note Date: 05/16/25 Chief complaint: Psychosis Interval History: Patient was seen wandering the hallways and was directable and agreeable to speak with advertising copywriter in the office. The patient continued to present somewhat paranoid. However upon meeting the patient she was less hesitant to discuss why she was here. She notes that she has been running from someone "herself". She notes that God has given her a power and she has not been using it as she should. She did note that she felt paranoid. She denied any auditory or visual hallucinations. She notes that she is not depressed but mildly anxious. She notes that she slept well last night with the Zyprexa. She denies any problems with energy, appetite or concentration. She denies any side effects with the current medication. Mental Status Exam: General Appearance: The patient presented dressed appropriately but mildly disheveled. She was not malodorous today which indicates that she has been bathing. Behavior: She was calm but still suspicious. Speech: Patient's speech is fluent and nonpressured. Mood/Affect: Mood is improving mildly, affect is congruent and constricted. Suicidality/Homicidality: Patient denies having any suicidal or homicidal ideation intent or plan. Perceptions: Patient denies any visual hallucinations and denies any auditory hallucinations Though content/process: The patient presents paranoid and hypervigilant. She did express some delusional thoughts including about God. Memory and concentration: AOX3, grossly intact for the purposes of this session Judgment and insight: Improving mildly Diagnosis: Psychosis unspecified Depression unspecified Assessment: The patient has had mild benefits from the Zyprexa and it appears that it is settling down her mind but she still remains paranoid and it is felt that she is discharged today that she would decompensate. We need to complete stabilization prior to discharge continue hospitalization this is the least restrictive level of care at this time. PLAN: -Patient is admitted under involuntary status to [facility] for stabilization of psychiatric symptoms and safety. Patient has not signed adult voluntary form and medication consent and is placed in patient's chart. A second certification was completed and along with petition will be filed for court. -Medications : Zyprexa Zydis 5 mg take 1 tablet by mouth twice daily for psychosis -Ativan and Haldol PRN for agitation/aggression -Patient was counselled on substance abuse and desired to cut back on use -Will offer patient subtance use rehab -Patient was informed of the risks, benefits and side effects of the medication and patient verbally consented to taking the medications. Patient signed med con sent form and was placed in chart. -Internal Medicine consult to perform medical evaluation and physical. -NRT -nicotine patch -SW on board for discharge planning. Encourage patient to participate in groups to work on coping skills. Will await deferral and court date.
--- NOTE | 2025-05-16 22:49 | P.MDCNMH ---
History of Present Illness H&P Date: 05/16/25 40-year-old female with intermittent asthma Patient coming in for mental health evaluation Medicine was consulted for medical management Patient reports no medical concerns at this time except for her thyroid where she reports some brittle nails cold extremities and hair thinning with occasional constipation. She also reports nervousness but denies any diarrhea or weight loss. Her TSH came back low and she is asking for further testing for her thyroid Patient denies any fevers chills nausea vomiting abdominal pain chest pain trouble breathing denies any dizziness lightheadedness denies any urinary changes or bowel habit changes denies any focal neurodeficits Review of systems All systems reviewed with pertinent positive negatives as per HPI on exam Constitutional: No acute distress, conversant, pleasant Eyes: Anicteric sclerae, moist conjunctiva, Pupils equal round reactive to light Neck: Supple, no masses, or JVD No carotid bruits No thyromegaly Lungs: Clear to auscultation Clear to percussion Normal respiratory effort, no accessory muscle use Cardiovascular: Heart regular in rate and rhythm, No murmurs, gallops, or rubs No peripheral edema Abdominal: Soft Nontender, no guarding, rebound or rigidity Abdomen moving with respiration Tenderness to percussion over the costovertebral angle left Extremities: No digital cyanosis No clubbing Pedal pulses intact and symmetrical Radial pulses intact and symmetrical No calf tenderness Psychiatric: Alert and oriented to person, place and time Neuro Muscles Strength 5/5 in all 4 extremities Sensation to light touch grossly present throughout Cranial nerves II-XII grossly intact Assessment and plan Low TSH Symptoms suggestive of thyroid dysfunction Check free T4, free T3 Check ferritin CBC lipid profile renal function blood work results reviewed unremarkable Thank you for this consultation Past Medical History Past Medical History: Asthma History of Any Multi-Drug Resistant Organisms: None Reported Past Surgical History: Cholecystectomy Additional Past Surgical History / Comment(s): ectopic surgery Past Anesthesia/Blood Transfusion Reactions: No Reported Reaction Past Psychological History: Depression Smoking Status: Current every day smoker Past Alcohol Use History: Occasional Past Drug Use History: Marijuana - Past Family History Mother Family Medical History: Unable to Obtain Father Family Medical History: Unable to Obtain Medications and Allergies Home Medications Medication Instructions Recorded Confirmed Type Albuterol Sulfate [Albuterol 2 puff INHALATION RT-Q4H PRN 10/11/24 05/14/25 History Sulfate Hfa] Allergies Allergy/AdvReac Type Severity Reaction Status Date / Time Iodinated Contrast Media AdvReac Rash/Hives Verified 05/14/25 19:16 [Iodinated Contrast- Oral and IV Dye] latex AdvReac Unknown Verified 05/14/25 19:16 shellfish derived [Shellfish] AdvReac Rash/Hives Verified 05/14/25 19:16 Physical Exam Vitals: Vital Signs Temp Pulse Resp BP Pulse Ox 05/16/25 09:00 97.6 F 91 18 139/77 99 Cranial Nerve Examination - Cranial Nerves Cranial Nerve II- Optic: Intact Cranial Nerve III- Oculomotor: Intact Cranial Nerve IV- Trochlear: Intact Cranial Nerve V- Trigeminal: Intact Cranial Nerve - Abducens: Intact Cranial Nerve VII- Facial: Intact Cranial Nerve VIII- Auditory: Intact Cranial Nerve IX- Glossopharyngeal: Intact Cranial Nerve X- Vagus: Intact Cranial Nerve XI- Accessory: Intact Cranial Nerve XII- Hypoglossal: Intact Results CBC & Chem 7: 05/15/25 17:21 05/15/25 17:21
[2025-05-17 11:28] LABS: Ferritin 104.0 ng/mL (10.0-291.0); T4, Free (Free Thyroxine) 1.37 ng/dL (0.80-1.80)
--- NOTE | 2025-05-17 13:44 | P.PN ---
Progress Note - Text Progress Note Date: 05/17/25 Chief complaint: Psychosis Interval History: Patient was seen wandering the hallways and was directable and agreeable to speak with proposal writer in the office. The patient notes that she is here. She does feel better and notes that the paranoia, auditory hallucinations and visual hallucinations have decreased. She is no longer having thought blocking. She notes that she went to groups and she felt this was helpful. She does note that the medication is making her sleepy. Overall she feels that she is going in the right direction. She regrets not declining the court order. Mental Status Exam: General Appearance: Patient appears her stated age, obese, gait was normal, and dressed appropriately Behavior: Patient is calmly seated without any agitated behavior. Speech: Patient's speech is fluent and nonpressured. Mood/Affect: Mood is improving mildly, affect is congruent and constricted. Suicidality/Homicidality: Patient denies having any suicidal or homicidal ideation intent or plan. Perceptions: Decreased auditory and visual hallucinations Though content/process: Decrease in paranoia Memory and concentration: AOX3, grossly intact for the purposes of this session Judgment and insight: Improving mildly Diagnosis: Psychosis unspecified Depression unspecified Assessment: Patient is making steps and does not appear as psychotic as she was on admission. She was actually had no thought blocking during the interview. PLAN: -Patient is admitted under involuntary status to [facility] for stabilization of psychiatric symptoms and safety. Patient has not signed adult voluntary form and medication consent and is placed in patient's chart. A second certification was completed and along with petition will be filed for court. -Medications : Zyprexa Zydis 5 mg take 1 tablet by mouth twice daily for psychosis -Ativan and Haldol PRN for agitation/aggression -Patient was counselled on substance abuse and desired to cut back on use -Will offer patient subtance use rehab -Patient was informed of the risks, benefits and side effects of the medication and patient verbally consented to taking the medications. Patient signed med consent form and was placed in chart. -Internal Medicine consult to perform medical evaluation and physical. -NRT -nicotine patch -SW on board for discharge planning. Encourage patient to participate in groups to work on coping skills. Will await deferral and court date.
[2025-05-17 15:13] LABS: Bilirubin,Urine Negative (Negative); Blood,Urine Negative (Negative); Color,Urine Colorless; Glucose,Urine (UA) Negative (Negative); Ketones,Urine Negative (Negative); Leukocyte Esterase,Urine Negative (Negative); Nitrite,Urine Negative (Negative); PH, Urine 6.0 (5.0-8.0); Protein,Urine Negative (Negative); Specific Gravity,Urine 1.007 (1.001-1.035); Urobilinogen,Urine <2.0 mg/dL (<2.0)
--- NOTE | 2025-05-18 13:41 | P.PN ---
Progress Note - Text Progress Note Date: 05/18/25 Interval History: Patient was seen wandering the hallways and was directable and agreeable to ozzy merida with law writer in the office. Patient signed deferral today. Patient states that her memory is fuzzy regarding recalling the previous events that led to this admission however did state that this current presentation has never happened before. Patient appears to be doing better than previous notes mentioned however she did display some disorganization in her thoughts, stating that she is unable to sign a release so that somebody from the team can speak to family as she does not have a phone or memorized her phone numbers but then later stated she has been speaking to her family members on the phone and was agreeable with signing a release. She does find the Zyprexa helpful, reporting some restlessness. She feels as though her sleep is at baseline and that she normally sleeps from 3 to 7 hours at night. At this time patient denies any suicidal or homicidal ideations, intent or plan. Patient denies any auditory, visual hallucinations. Patient denies any side effects from the medications and has been compliant with meds. Mental Status Exam: General Appearance: Patient appears to be stated age is alert, directable, and cooperative. Behavior: Patient is calmly seated without any agitated behavior. Speech: Patient's speech is fluent and nonpressured. Mood/Affect: Mood is improving mildly, affect is congruent and constricted. Suicidality/Homicidality: Patient denies having any suicidal or homicidal ideation intent or plan. Perceptions: Patient denies any visual hallucinations and denies any auditory hallucinations Though content/process: There is slight disorganization in thoughts, mild paranoia evident Memory and concentration: AOX3, grossly intact for the purposes of this session Judgment and insight: Improving mildly Assessment Major depressive disorder, severe with psychotic features Nicotine dependence Plan: -Patient continues to meet criteria for inpatient psychiatric admission for symptom stabilization and safety. Patient has not signed adult voluntary form and medication consent and was placed in patient's chart. -Medications: Increase Zyprexa Zydis to 5 mg daily and 10 mg at bedtime for psychosis -When necessary Ativan and Haldol for agitation/aggression. -Labs: Reviewed -NRT - nicotine patch -SW on board for discharge planning. Encouraged the patient to participate in milieu. Patient deferred today
[2025-05-18] MEDS: OLANZapine ODT 5 MG TAB PO SCH (21:08)
[2025-05-19] MEDS: OLANZapine ODT 5 MG TAB PO SCH (23:16)
--- NOTE | 2025-05-20 20:02 | P.PN ---
Progress Note - Text Progress Note Date: 05/19/25 Interval History: Patient was seen at her room today where she had been sitting on the bed in the dark. She appears internally preoccupied with some thought blocking, and attending to internal stimuli. She admits to hearing voices and to feeling a "little bit depressed" and misses home. At this time patient denies any suicidal or homicidal ideation, intent or plan. Patient denies any side effects from the medications and has been compliant with meds. Mental Status Exam: General Appearance: Patient appears to be stated age, obese, poor dentition Behavior: Patient is calmly standing without any agitated behavior, appears internally preoccupied. Speech: Patient's speech is nonpressured, thought blocking. Mood/Affect: Mood is a little bit depressed, affect is congruent and constricted. Suicidality/Homicidality: Patient denies having any suicidal or homicidal ideation intent or plan. Perceptions: Patient denies any visual hallucinations and but admits to some auditory hallucinations Though content/process: There is slight disorganization in thoughts and thought blocking is evident Memory and concentration: AOX3, grossly intact for the purposes of this session Judgment and insight: Poor, Improving mildly Assessment/Plan: -Continue with current diagnosis. -Patient continues to meet criteria for inpatient psychiatric admission for symptom stabilization and safety. -Medications: Increase Zyprexa Zydis to 10 mg BID starting tomorrow morning for psychosis. Start Prozac 10 mg daily for depressed mood starting today. -When necessary Ativan and Haldol for agitation/aggression. -Encouraged the patient to participate in milieu.
--- NOTE | 2025-05-20 20:08 | P.PN ---
Progress Note - Text Progress Note Date: 05/20/25 Interval history: Patient was seen more active on the unit today, and appears less withdrawn and isolative. Her thoughts appear to be more linear and organized, and without thought blocking or attending to internal stimuli today since increasing her Zyprexa to 10 mg BID starting this morning and starting the Prozac 10 mg daily yesterday. Her affect appears improved, brighter. She denies any suicidal or homicidal ideation, intent or plan. She denies auditory or visual hallucinations today. She reports her mood is improved, not depressed but misses home. She inquires about getting linked with PCP and a race relations professor. Patient denies any side effects from the medications and has been compliant with meds. Mental Status Exam: General Appearance: Patient appears to be stated age, obese, poor dentition Behavior: Patient is calmly standing without any agitated behavior. Speech: Patient's speech is non-pressured and fluent. Mood/Affect: Mood is improved slightly, affect is congruent and constricted. Suicidality/Homicidality: Patient denies having any suicidal or homicidal ideation intent or plan. Perceptions: Patient denies any visual or auditory hallucinations today. Though content/process: Thoughts are linear, organized and coherent. No thought blocking today. Memory and concentration: AOX3, grossly intact for the purposes of this session Judgment and insight: Improving mildly Assessment/Plan: -Continue with current diagnosis. -Patient continues to meet criteria for inpatient psychiatric admission for symptom stabilization and safety. -Medications: Zyprexa Zydis was increased to 10 mg BID starting this morning for psychosis. Will continue at this dose and continue to monitor. Continue Prozac 10 mg daily for depressed mood. -When necessary Ativan and Haldol for agitation/aggression. -Encouraged the patient to participate in milieu.
[2025-05-21 11:23] VITALS: RESP 18
--- NOTE | 2025-05-21 13:39 | P.PN ---
Progress Note - Text Progress Note Date: 05/21/25 Interval History: Patient was seen wandering the hallways and was directable and agreeable to sp leonidask with sql report writer in the office. Patient appeared less disorganized, more future oriented today with no thought blocking exhibited. She has been adherent with her medications and find them helpful with hallucinations. She reports good sleep. She does admit to some nausea and belly pain with the addition of Prozac for depression. She states staying with family upon discharge however she does not have any phone numbers memorized and she does not have a phone so that someone can contact them. At this time patient denies any suicidal or homicidal ideations, intent or plan. Patient denies any auditory, visual hallucinations and denies any paranoia or delusions. Patient has been compliant with meds. Mental Status Exam: General Appearance: Patient appears to be stated age is alert, directable, and cooperative. She is obese Behavior: Patient is calmly seated without any agitated behavior. Speech: Patient's speech is fluent and nonpressured. Mood/Affect: Mood is improving mildly, affect is congruent and blunted. Suicidality/Homicidality: Patient denies having any suicidal or homicidal ideation intent or plan. Perceptions: Patient denies any visual hallucinations and denies any auditory hallucinations Though content/process: There is no evidence of any delusional thought content and thought process is linear and goal-directed. Memory and concentration: AOX3, grossly intact for the purposes of this session Judgment and insight: Improving mildly Assessment Major depressive disorder, severe with psychotic features Nicotine dependence Plan: -Patient continues to meet criteria for inpatient psychiatric admission for symptom stabilization and safety. Patient has not signed adult voluntary form and medication consent and was placed in patient's chart. -Medications: Continue Prozac 10 mg daily for depression, Zyprexa Zydis 10 mg twice daily for psychosis -When necessary Ativan and Haldol for agitation/aggression. -Labs: Reviewed -NRT - nicotine patch -SW on board for discharge planning. Encouraged the patient to participate in milieu. Patient deferred on Wednesday. Anticipate discharge home with tomorrow
[2025-05-21] MEDS: MELATONIN 5 MG TABLET PO SCH (21:15)
[2025-05-22 08:40] VITALS: BP 111/67; PULSE 115; TEMP 97.8
[2025-05-22] MEDS: ACETAMINOPHEN TAB 325 MG TAB PO PRN (09:08)
--- NOTE | 2025-05-22 13:00 | P.DS ---
Providers Date of admission: 05/14/25 21:25 Expected date of discharge: 05/22/25 Attending physician: Mariia Gonzlaez MD Consults: 05/14/25 21:58 Consult Physician Routine Consulting Provider: Janusz Barraza Consult Reason/Comments: H&P and medical Do you want consulting provider notified?: Yes Primary care physician: Stated None - Discharge Diagnosis(es) (1) Major depress, sev w/ psych Current Visit: Yes Status: Acute Priority: High (2) Nicotine dependence Current Visit: Yes Status: Acute Priority: Low Hospital Course: Admission HPI: Admission note was completed by Dr. Campbell"HPI: The patient presented to the hospital due to abdominal pain and while in the ER presented with bizarre behavior. Psychiatric intake interviewed the patient who presented bizarre and had made some suicidal statements which included running into traffic. The patient was a limited historian due to paranoia. Prior to confronting her with that statement she noted that she was not suicidal and afterwards notes that she does not know why she said that. She notes that she is frustrated that she has been admitted to the psychiatric unit. The patient's UDS was positive for cannabis. The patient notes that she is going through a bad bout of depression and her depression waxes and wanes. She notes her anxiety levels bad. She notes that she had not been sleeping recently. She notes that her energy, appetite and concentration are normal. She denies any feelings of helplessness, hopelessness or worthlessness. She denies any crying but notes guilt and shame. When asking her about auditory hallucinations she denied this. She also denied any visual hallucinations or ideas of reference. She denied any thought projection or mind reading. She did state that she is p aranoid and would hesitate on her answers because she had to think of them prior to seeing them due to fear that they would cause her to stay longer. When asking if she was she initially said no but now after showing her in the chart that she had stated this before and her spouse's name she notes that she is. When asking her for her father and mother's phone number she was unable to remember it but the street address. She notes that she is nervous because she is taking care of her father and mother. She continued to deny any suicidal or homicidal ideations. She denies any access to guns. Collateral: Patient gave me permission to speak to her however when tried the number it appears that the number is disconnected Psychiatric review of systems: Bipolar-denied symptoms OCD-denied symptoms PTSD-denied symptoms Anxiety-Notes chronic worrying, muscle tension, problems initiating sleep and fatigue" Hospital course: Upon admission to the unit patient was admitted involuntarily on a petition and certificate and a second certificate was completed and faxed to the courts. Patient ended up signing a deferral with the opener tender and agreeing to treatment.. Patient got along well with other patients on the unit and followed unit protocol. Patient was compliant with the medications and denied any side effects throughout hospital course. Patient was started on Zyprexa Zydis and this was increased to 10 mg twice daily for psychosis, Prozac 10 mg daily for depression. Patient spoke of her stressors and engaged in therapy both group and individual. Patient was also seen by medical team for history and physical exam. Throughout the course of the hospitalization patient gradually improved with regards to mood, anxiety, sleep and became more future oriented with improved insight and judgment. On the day of discharge patient denied any suicidal or homicidal ideations intent or plan denied any auditory or visual hallucinations. The patient denied any access to guns or weapons. Patient denied any paranoia and did not endorse any delusions. Patient does not have a significant history of substance abuse and was counseled on abstaining from all substances including alcohol and marijuana. Patient was also counseled on the medications and need for regular compliance and was encouraged to follow-up with their outpatient appointment for mental health and also for primary care. Patient to be discharged home with and will follow-up with [facility]. Patient was reminded of deferral status and acknowledged the need to comply with treatment including taking medications and following up with [facility] Mental status exam: General Appearance: Patient appears to be stated age is alert, pleasant, and cooperative. Patient is in no acute distress and has improved hygiene and grooming Behavior: Patient is calmly seated without any agitated behavior. Speech: Patient's speech is fluent and nonpressured. Mood/Affect: Patient reports their mood is "better", affect is congruent and euthymic. Suicidality/Homicidality: Patient denies having any suicidal or homicidal ideation intent or plan. Perceptions: Patient denies any auditory or visual hallucinations. Though content/process: There is no evidence of any delusional thought content and thought process is linear and goal-directed. More future oriented Memory and concentration: AOX3, grossly intact for the purposes of this session. Can spell "WORLD" backwards correctly. Judgment and insight: Fair Impression: Major depressive disorder, severe with psychotic features Nicotine dependence Plan: -Continue with discharge today as patient has improved and stabilized psychiatrically and is not currently an imminent threat to themself and/or others. -Continue medications: Zyprexa Zydis 10 mg twice daily, Prozac 10 mg daily -Patient was counseled on the need for medication compliance and appropriate follow-up at mental health and also primary care for medical issues. Patient verbalized understanding and agreed. -Social work to help coordinate patients discharge today. also to ensure safe home environment that guns/weapons are either removed from the home or locked away. Social work also to arrange for patients follow up appointments with [facility] for psychiatric care along with follow up with primary care provider. -Patient counseled on abstaining from recreational drugs and marijuana and a lcohol. Was informed/educated on the adverse effects on their physical and mental health. Patient verbally agreed and understood. -Patient was instructed to return to the hospital or seek immediate medical care if their psychiatric or medical symptoms do worsen or reoccur. Abnormal Labs 05/14/25 05/15/25 16:43 17:21 BUN 5 L TSH 0.326 L U Marijuana (THC) Screen Detected H Allergies Allergy/AdvReac Type Severity Reaction Status Date / Time Iodinated Contrast Media AdvReac Rash/Hives Verified 05/14/25 19:16 [Iodinated Contrast- Oral and IV Dye] latex AdvReac Unknown Verified 05/14/25 19:16 shellfish derived [Shellfish] AdvReac Rash/Hives Verified 05/14/25 19:16 Vital Signs Temp 97.8 F 05/22/25 08:38 Pulse 115 H 05/22/25 08:38 Resp 18 05/21/25 21:00 BP 111/67 05/22/25 08:38 Pulse Ox 98 05/22/25 08:38 FiO2 Patient Condition at Discharge: Stable Plan - Discharge Summary Discharge Rx Participant: Yes New Discharge Prescriptions: New Nicotine 14Mg/24Hr Patch [Habitrol] 1 patch TRANSDERM DAILY 30 Days #30 patch OLANZapine ODT [ZyPREXA Zydis] 10 mg PO BID 30 Days #120 tab Melatonin 10 mg PO HS 30 Days #60 tab FLUoxetine HCL [PROzac] 10 mg PO DAILY 30 Days #30 cap Continue Albuterol Sulfate [Albuterol Sulfate Hfa] 2 puff INHALATION RT-Q4H PRN PRN Reason: Shortness Of Breath Discharge Medication List Albuterol Sulfate [Albuterol Sulfate Hfa] 2 puff INHALATION RT-Q4H PRN 10/11/24 [History] FLUoxetine HCL [PROzac] 10 mg PO DAILY 30 Days #30 cap 05/22/25 [Rx] Melatonin 10 mg PO HS 30 Days #60 tab 05/22/25 [Rx] Nicotine 14Mg/24Hr Patch [Habitrol] 1 patch TRANSDERM DAILY 30 Days #30 patch 05/22/25 [Rx] OLANZapine ODT [ZyPREXA Zydis] 10 mg PO BID 30 Days #120 tab 05/22/25 [Rx] Follow up Appointment(s)/Referral(s): [place],Department of Medicaid [Other] - As Needed [facility] [Other] - As Needed [facility] [Outside] - 05/23/25 1:00 pm (with Radha) [facility] [NON-STAFF] - 1 Week Patient Instructions/Handouts: How to Stop Smoking (DC), Depression (DC), Psychotic Disorder (DC) Activity/Diet/Wound Care/Special Instructions: [facility] Discharge Info Avoid the use of street drugs and alcohol. Take all medications as prescribed. When you are in need of refills on your medications, please contact your outpatient medical provider and/or outpatient psychiatrist. Please go to your scheduled outpatient appointments for aftercare treatment. If symptoms return or become worse, call the crisis line at or and/or visit the nearest emergency room for assistance. National Suicide and Crisis Lifeline - call or text 373. Discharge/Stand Alone Forms: [facility] Shelters, Personal Data Technical Lead Discharge Disposition: HOME SELF-CARE
== END 2025-05-22 15:22 | disposition home or self-care (01) | DRG 885 ==
LOC: EC 14:37 → 3MHU 21:25
PROVIDERS: ADMIT Psychiatry & Neurology Psychiatry; ATTEND Psychiatry & Neurology Psychiatry
DX: F32.3 Major depressive disorder, single episode, severe with psychotic features (principal); F17.200 Nicotine dependence, unspecified, uncomplicated; J45.20 Mild intermittent asthma, uncomplicated; F41.9 Anxiety disorder, unspecified; Z79.899 Other long term (current) drug therapy; Z11.52 Encounter for screening for COVID-19
CPT/HCPCS: 80053; 80061; 80306; 81003; 81025; 82075; 82728; 83036; 84439; 84443; 84481; 85025; 87635; 99285